=== PATIENT | female | born 1985 | race Two or more races ===

== ENCOUNTER 2020-04-12 15:00 | Inpatient (IN) | payer OTHER ==
[2020-04-12 15:49] VITALS: BMI 29.2
[2020-04-12] MEDS ORDERED: AMPICILLIN - 2 GM in SODIUM CHLORIDE 100 ML IVPB ONE (17:03)
[2020-04-12 17:39] LABS: BASO % 0.1 % (0-2.0); EOS % 0.8 % (0-4.5); HEMATOCRIT 34.4 % (32.4-45.2); HEMOGLOBIN 11.1 GM/dL (10.7-15.3); LYMPH % 10.8 % (8-40); MCH 27.3 pg (25.7-33.7); MCHC 32.4 g/dl (32.0-36.0); MEAN CELL VOLUME 84.3 fl (80-96); MEAN PLT VOLUME 7.9 fl (7.5-11.1); MONO % 5.7 % (3.8-10.2); NEUT % 82.6 % (42.8-82.8); PLATELET COUNT 201 K/MM3 (134-434); RBC 4.08 M/mm3 (3.60-5.2); RDW 15.4 % (11.6-15.6); WHITE BLOOD COUNT 8.3 K/mm3 (4.0-10.0)
[2020-04-12 17:47] LABS: INR 0.96 (0.83-1.09); PROTHROMBIN TIME (PATIENT) 11.3 SEC (9.7-13.0)
[2020-04-12 17:49] LABS: ACTIVATED PTT 25.7 SECONDS (25.2-36.5)
[2020-04-12 18:13] LABS: BLOOD UREA NITROGEN 6.5 mg/dL (7-18); CREATININE 0.4 mg/dL (0.55-1.3)
[2020-04-12 18:14] LABS: CALCIUM 8.5 mg/dL (8.5-10.1); POTASSIUM 3.3 mmol/L (3.5-5.1)
[2020-04-12 19:03] LABS: HIV INTERPRETATION NEGATIVE (NEGATIVE)
[2020-04-12] MEDS ORDERED: DINOPROSTONE 10 MG VAGINAL SUPPOSITORY VG ONE (19:30)
[2020-04-13] MEDS: DEXTROSE 5%-LACTATED RINGERS 1,000 ML IV SCH ×2 (07:00→18:26)
[2020-04-13] MEDS ORDERED: OXYTOCIN 30 UNITS in 0.9% NS 30 UNIT/500 ML INFUS.BAG IVPB ONE (10:18)
[2020-04-13] MEDS ORDERED: AMPICILLIN SODIUM 2 GM VIAL ONE (10:19)
[2020-04-13] MEDS ORDERED: BUTORPHANOL TARTRATE 1 MG/ML VIAL ONE ×2 (13:36)
[2020-04-13] MEDS ORDERED: PROMETHAZINE HCL 25 MG/1 ML VIAL ONE (13:36)
[2020-04-13] MEDS: AMPICILLIN - 1 GM in SODIUM CHLORIDE 100 ML IVPB SCH ×3 (14:30→23:05)
[2020-04-13] MEDS ORDERED: AMPICILLIN SODIUM 1 GM VIAL ONE ×2 (14:34→18:12)
[2020-04-13] MEDS ORDERED: FENTANYL/BUPIVACAINE/NS/PF - PCEA - 50 ML DISP.SYRIN EP ONE (16:05)
[2020-04-13] MEDS ORDERED: PCA PUMP NR ONE (16:06)
[2020-04-13] MEDS ORDERED: BUTORPHANOL TARTRATE 1 MG/ML VIAL IVPB ONE (17:20)
[2020-04-13] MEDS ORDERED: PROMETHAZINE HCL 25 MG/1 ML VIAL IVPB ONE (17:21)
[2020-04-13] MEDS ORDERED: OXYTOCIN 30 UNITS in 0.9% NS 30 UNIT/500 ML INFUS.BAG IVPB SCH (17:30)
[2020-04-13] MEDS ORDERED: NALOXONE HCL 0.4 MG/ML VIAL IVPUSH PRN (17:48)
[2020-04-13] MEDS ORDERED: FENTANYL/BUPIVACAINE/NS/PF - PCEA - 50 ML DISP.SYRIN EP SCH (18:00)
[2020-04-13] MEDS ORDERED: OXYTOCIN 20 UNITS in 0.9% NS 20 UNIT/1,000 ML INFUS.BAG IV ONE (18:09)
[2020-04-13] MEDS ORDERED: BENZOCAINE 20% 57 GM BOTTLE TP PRN (21:27)
[2020-04-13] MEDS ORDERED: WITCH HAZEL 50% (TUCKS) 40 PAD/JAR PAD TP PRN (21:27)
[2020-04-13] MEDS ORDERED: ACETAMINOPHEN 325 MG TABLET (FP) PO PRN (21:27)
[2020-04-13] MEDS ORDERED: METHYLERGONOVINE MALEATE 0.2 MG/1 ML AMP IM PRN (21:27)
[2020-04-13] MEDS ORDERED: IBUPROFEN 600 MG TABLET (FP) PO PRN (21:27)
[2020-04-13] MEDS ORDERED: BENZOCAINE 28 GM HEMORRHOIDAL OINTMENT TP PRN (21:27)
[2020-04-13] MEDS ORDERED: BISACODYL 10 MG SUPP.RECT RC PRN (21:27)
[2020-04-13 21:38] LABS: CORD BASE EXCESS -8.1 mmol/L (0-2); CORD HCO3 17.8 mmHg (20-29); CORD PCO2 38.4 mmHg (30-78); CORD pH 7.285 (7.14-7.44)
[2020-04-14] MEDS: AMPICILLIN - 1 GM in SODIUM CHLORIDE 100 ML IVPB SCH (07:52)
[2020-04-14 09:05] LABS: BASO % 0.2 % (0-2.0); EOS % 0.4 % (0-4.5); HEMATOCRIT 36.2 % (32.4-45.2); HEMOGLOBIN 11.7 GM/dL (10.7-15.3); LYMPH % 6.6 % (8-40); MCH 27.1 pg (25.7-33.7); MCHC 32.3 g/dl (32.0-36.0); MEAN CELL VOLUME 83.9 fl (80-96); MEAN PLT VOLUME 8.2 fl (7.5-11.1); MONO % 7.4 % (3.8-10.2); NEUT % 85.4 % (42.8-82.8); PLATELET COUNT 201 K/MM3 (134-434); RBC 4.31 M/mm3 (3.60-5.2); RDW 15.3 % (11.6-15.6)
[2020-04-14] MEDS ORDERED: DIPHTH,PERTUSS(ACELL),TET 0.5 ML DISP.SYRIN IM ONE (10:00)
[2020-04-14] MEDS ORDERED: SENNOSIDES/DOCUSATE COMBO (SENNA PLUS) TABLET (UD) PO PRN (22:00)
[2020-04-15 08:55] VITALS: BP 112/70; PULSE 70; TEMP 98.7
== END 2020-04-15 15:10 | disposition home or self-care (01) | DRG 560 ==
LOC: JLDR 15:00 → J3W 04-13 22:15
PROVIDERS: ADMIT Obstetrics & Gynecology; ATTEND Obstetrics & Gynecology
PROC: 10E0XZZ Delivery of Products of Conception, External Approach (ICD-10-PCS; principal; 2020-04-13)
PROC: 0W8NXZZ Division of Female Perineum, External Approach (ICD-10-PCS; 2020-04-13)
DX: O41.03X0 Oligohydramnios, third trimester, not applicable or unspecified (principal); O99.824 Streptococcus B carrier state complicating childbirth; Z3A.40 40 weeks gestation of pregnancy; Z37.0 Single live birth
CPT/HCPCS: 36415; 36600; 59409; 80048; 82803; 85025; 85610; 85730; 86780; 86850; 86900; 86901; 87389; 90715; U0003